=== PATIENT | male | born 1975 | race Caucasian/White ===

== ENCOUNTER 2024-10-25 19:48 | Emergency (ER) | payer OTHER ==
--- NOTE | 2024-10-25 19:53 | ED ---
General Adult HPI - General Stated complaint: Cough Time Seen by Provider: 10/25/24 19:48 Source: patient, EMS, RN notes reviewed Mode of arrival: EMS Limitations: no limitations - History of Present Illness Initial comments: 49-year-old male presents emergency department chief complaint of cough congestion. Patient states he has been sick over last couple weeks. Patient has productive cough he has rib pain from coughing. He states that he has minimal shortness of breath. Patient states he was being treated for infection prior to going [facility]. Patient states that his cough is worsening sometimes productive. Patient denies any nausea diarrhea constipation abdominal pain. Patient offers no complaints. Patient did present via EMS from [facility]. - Related Data Previous Rx's Medication Instructions Recorded Amoxic-Pot Clav 875-125Mg 1 tab PO Q12HR #20 tab 10/25/24 [Augmentin 875-125] Allergies Allergy/AdvReac Type Severity Reaction Status Date / Time ibuprofen Allergy Rash/Hives Verified 10/25/24 19:51 Review of Systems ROS Statement: Those systems with pertinent positive or pertinent negative responses have been documented in the HPI. ROS Other: All systems not noted in ROS Statement are negative. General Exam Limitations: no limitations General appearance: alert, in no apparent distress Head exam: Present: atraumatic, normocephalic, normal inspection Eye exam: Present: normal appearance, PERRL, EOMI. Absent: scleral icterus, conjunctival injection, periorbital swelling ENT exam: Present: normal exam, normal oropharynx, mucous membranes moist Neck exam: Present: normal inspection, full ROM. Absent: tenderness, meningismu s, lymphadenopathy Respiratory exam: Present: rhonchi, chest wall tenderness. Absent: normal lung sounds bilaterally, respiratory distress, wheezes, rales, stridor Cardiovascular Exam: Present: regular rate, normal rhythm, normal heart sounds. Absent: systolic murmur, diastolic murmur, rubs, gallop, clicks Course Vital Signs 10/25/24 19:52 Temperature 98.4 F Pulse Rate 79 Respiratory 18 Rate Blood Pressure 151/90 O2 Sat by Pulse 97 Oximetry Medical Decision Making - Medical Decision Making Was pt. sent in by a medical professional or institution (, PA, SUCTION OPERATOR, urgent care, hospital, or longterm...) When possible be specific @ -[facility] Did you speak to anyone other than the patient for history (EMS, parent, family, police, friend...)? What history was obtained from this source @ -No Did you review nursing and triage notes (agree or disagree)? Why? @ -I reviewed and agree with nursing and triage notes Were old charts reviewed (outside hosp., previous admission, EMS record, old EKG, old radiological studies, urgent care reports/EKG's, longterm records)? Report findings @ -No old charts were reviewed Differential Diagnosis (chest pain, altered mental status, abdominal pain women, abdominal pain men, vaginal bleeding, weakness, fever, dyspnea, syncope, headache, dizziness, GI bleed, back pain, seizure, CVA, palpatations, mental health, musculoskeletal)? @ -Intervention URI EKG interpreted by me (3pts min.). @ -None X-rays interpreted by me (1pt min.). @ -Chest x-ray shows right lobe pneumonia CT interpreted by me (1pt min.). @ -None done U/S interpreted by me (1pt. min.). @ -None done What testing was considered but not performed or refused? (CT, X-rays, U/S, labs)? Why? @ -None What meds were considered but not given or refused? Why? @ -None Did you discuss the management of the patient with other professionals (professionals i.e. , PA, SUCTION OPERATOR, lab, RT, psych nurse, manager social services, chicken boner, teacher, civilian jail officer, caseworker intake)? Give summary @ -No Was smoking cessation discussed for >3mins.? @ -No Was critical care preformed (if so, how long)? @ -No Were there social determinants of health that impacted care today? How? (Homelessness, low income, unemployed, alcoholism, drug addiction, transportation, low edu. Level, literacy, decrease access to med. care, penitentiary, rehab)? @ -No Was there de-escalation of care discussed even if they declined (Discuss DNR or withdrawal of care, Hospice)? DNR status @ -No What co-morbidities impacted this encounter? (DM, HTN, Smoking, COPD, CAD, Cancer, CVA, ARF, Chemo, Hep., AIDS, mental health diagnosis, sleep apnea, morbid obesity)? @ -Alcohol, drug abuse Was patient admitted / discharged? Hospital course, mention meds given and route, prescriptions, significant lab abnormalities, going to OR and other pertinent info. @ -Charged t patient stable, patient does have evidence of pneumonia patient received Rocephin will be discharged with Augmentin return parameters christiano. Undiagnosed new problem with uncertain prognosis? @ -No Drug Therapy requiring intensive monitoring for toxicity (Heparin, Nitro, Insulin, Cardizem)? @ -No Were any procedures done? @ -No Diagnosis/symptom? @ -[Pneumonia Acute, or Chronic, or Acute on Chronic? @ -Acute Uncomplicated (without systemic symptoms) or Complicated (systemic symptoms)? @ -Default Side effects of treatment? @ -No Exacerbation, Progression, or Severe Exacerbation? @ -No Poses a threat to life or bodily function? How? (Chest pain, [place], VT, pneumonia, PE, COPD, DKA, ARF, appy, cholecystitis, CVA, Diverticulitis, Homicidal, Suicidal, threat to staff... and all critical care pts) @ -Yes low likelihood pneumonia causing respiratory failure - Lab Data Lab Results 10/25/24 Range/Units 20:06 Influenza Type A (PCR) Not Detected (Not Detectd) Influenza Type B (PCR) Not Detected (Not Detectd) RSV (PCR) Not Detected (Not Detectd) SARS-CoV-2 (PCR) Not Detected (Not Detectd) Disposition Clinical Impression: Pneumonia Disposition: HOME SELF-CARE Condition: Stable Instructions (If sedation given, give patient instructions): Pneumonia (ED) Additional Instructions: Please return to the Emergency Department if symptoms worsen or any other concerns. Prescriptions: Amoxic-Pot Clav 875-125Mg [Augmentin 875-125] 1 tab PO Q12HR #20 tab Is patient prescribed a controlled substance at d/c from ED?: No Referrals: None,Stated [Primary Care Provider] - 1-2 days Time of Disposition: 20:56
[2024-10-25 19:56] VITALS: RESP 18
--- NOTE | 2024-10-25 20:19 | XR ---
EXAMINATION TYPE: XR chest 2V DATE OF EXAM: 10/25/2024 8:09 PM COMPARISON: None. CLINICAL INDICATION: Male, 49 years old with history of cough, TECHNIQUE: Frontal and lateral views of the chest are obtained. FINDINGS: There is patchy opacity lateral right midlung. Left lung is clear. There is no pleural ef fusion or pneumothorax seen bilaterally. The cardiac silhouette size is within normal limits. The o sseous structures are intact. IMPRESSION: Developing lateral right midlung acute infiltrate and/or atelectasis. Consider brandin carver. [facility], , 10/25/2024 8:17 PM
[2024-10-25] MEDS: cefTRIAXone 1,000 MG VIAL (IM USE) IM STA (21:08)
[2024-10-25 21:22] VITALS: BP 148/81; PULSE 71; TEMP 98.2
== END 2024-10-25 21:22 | disposition home or self-care (01) ==
LOC: EC 19:48
DX: J18.9 Pneumonia, unspecified organism (principal); F10.10 Alcohol abuse, uncomplicated; Z88.8 Allergy status to other drugs, medicaments and biological substances
CPT/HCPCS: 71046; 87636; 99283

== ENCOUNTER 2024-10-26 20:55 | Emergency (ER) | payer OTHER ==
[2024-10-26 21:01] VITALS: TEMP 98.6
[2024-10-26] MEDS: ACETAMINOPHEN TAB 500 MG TAB PO STA (21:46)
[2024-10-26] MEDS: SODIUM CHLORIDE 0.9% 1,000 ML IV STA (21:47)
[2024-10-26] MEDS: LIDOCAINE 4% PATCH TOPICAL ONE (21:49)
[2024-10-26] MEDS: methylPREDNISolone SOD SUCCI 125 MG/2 ML VIAL IV STA (21:50)
--- NOTE | 2024-10-26 21:54 | ED ---
General Adult HPI - General Chief complaint: Shortness of Breath Stated complaint: Pneumonia Time Seen by Provider: 10/26/24 21:21 Source: patient, EMS, RN notes reviewed, old records reviewed Mode of arrival: EMS Limitations: no limitations - History of Present Illness Initial comments: Patient is a 49-year-old male who presents emergency department complaining of coughing, right rib pain. Patient has been having upper respiratory symptoms for a few days. Was seen yesterday and diagnosed with pneumonia. Patient was started on Augmentin for pneumonia and discharged back to [place] where he is there for cocaine and alcohol. Patient does have a history of tobacco use and COPD. Has an albuterol inhaler as needed. Returns today as he is having worsening right sided rib pain with coughing and movement. Is still coughing as well. Denies any fevers. No hypoxia. No other acute complaints. Presents for reevaluation with a new onset right rib pain. States it is worse with movement, palpation. - Related Data Previous Rx's Medication Instructions Recorded Amoxic-Pot Clav 875-125Mg 1 tab PO Q12HR #20 tab 10/25/24 [Augmentin 875-125] Albuterol Inhaler [Ventolin Hfa 1 - 2 puff INHALATION Q6H PRN #1 10/26/24 Inhaler] each Cyclobenzaprine [Flexeril] 5 mg PO TID PRN 5 Days #15 tablet 10/26/24 Lidocaine 5% Patch [Lidoderm 5% 1 patch TOPICAL DAILY PRN 14 Days 10/26/24 Patch] #14 patch predniSONE [Deltasone] 40 mg PO DAILY 5 Days #10 tab 10/26/24 Allergies Allergy/AdvReac Type Severity Reaction Status Date / Time ibuprofen Allergy Rash/Hives Verified 10/25/24 19:51 Review of Systems ROS Statement: Those systems with pertinent positive or pertinent negative responses have been documented in the HPI. Review of Systems: CONST: Denies fever EYES: Denies blurry vision ENT: Denies nasal congestion C/V: Denies Chest pain RESP: Endorses cough, right rib pain GI: Denies abdominal pain : Denies dysuria SKIN: Denies rash. MSK: Denies joint pain. NEURO: Denies headache ROS Other: All systems not noted in ROS Statement are negative. Past Medical History Additional Past Medical History / Comment(s): closed head injury 1992 History of Any Multi-Drug Resistant Organisms: None Reported Past Surgical History: No Surgical Hx Reported Past Psychological History: Anxiety, Bipolar, Depression Smoking Status: Current every day smoker Past Alcohol Use History: Daily Past Drug Use History: Cocaine General Exam - General Exam Comments Initial Comments: General: Appears in no acute distress. HEAD: Normal with no signs of head trauma. EYES: EOMI ENT: Hearing grossly intact, normal oropharynx. RESPIRATORY: Mildly coarse breath sounds over the right lung. No hypoxia. C/V: Regular rate and rhythm. S1 and S2 auscultated, no edema, peripheral pulses 2+ and intact throughout ABD: Abd is soft, nontender, nondistended EXT: Normal range of motion, no obvious deformity. Tenderness to palpation of the right inferior lateral rib. No obvious bruising or step-offs. No evidence of flail chest. SKIN: No rashes or lesions observed on exposed skin. NEURO: Alert and x 4. Limitations: no limitations Course Vital Signs 10/26/24 10/26/24 10/26/24 20:56 21:05 21:20 Temperature 98.6 F Pulse Rate 61 64 Respiratory 18 22 Rate Blood Pressure 140/100 134/91 O2 Sat by Pulse 97 94 L 99 Oximetry 10/26/24 10/26/24 10/26/24 22:00 22:31 22:43 Temperature Pulse Rate 58 L 60 60 Respiratory 20 Rate Blood Pressure 138/101 O2 Sat by Pulse 99 Oximetry 10/26/24 23:34 Temperature Pulse Rate 61 Respiratory 18 Rate Blood Pressure 152/84 O2 Sat by Pulse 98 Oximetry Medical Decision Making - Medical Decision Making Was pt. sent in by a medical professional or institution ([facility], UTILITY SPRAY OPERATOR, urgent care, hospital, or fpc...) When possible be specific @ -No Did you speak to anyone other than the patient for history (EMS, parent, family, police, friend...)? What history was obtained from this source @ -No Did you review nursing and triage notes (agree or disagree)? Why? @ -I reviewed and agree with nursing and triage notes Were old charts reviewed (outside hosp., previous admission, EMS record, old EKG, old radiological studies, urgent care reports/EKG's, fpc records)? Report findings @ -Reviewed visit from yesterday when patient was diagnosed with right-sided pneumonia and started on Augmentin. Differential Diagnosis (chest pain, altered mental status, abdominal pain women, abdominal pain men, vaginal bleeding, weakness, fever, dyspnea, syncope, headache, dizziness, GI bleed, back pain, seizure, CVA, palpatations, mental health, musculoskeletal)? @ -Pneumonia, rib fracture, musculoskeletal pain, this list is not all inclusive. EKG interpreted by me (3pts min.). @ -As above X-rays interpreted by me (1pt min.). @ -Chest x-ray reveals no evidence of rib fracture. The diagnosed pneumonia from yesterday seems to be improving. CT interpreted by me (1pt min.). @ -None done U/S interpreted by me (1pt. min.). @ -None done What testing was considered but not performed or refused? (CT, X-rays, U/S, la bs)? Why? @ -None What meds were considered but not given or refused? Why? @ -None Did you discuss the management of the patient with other professionals (professionals i.e. , PA, UTILITY SPRAY OPERATOR, lab, RT, psych nurse, nursing home social worker, through freight engineer, teacher, financial aids officer, insurance case manager)? Give summary @ -No Was smoking cessation discussed for >3mins.? @ -No Was critical care preformed (if so, how long)? @ -No Were there social determinants of health that impacted care today? How? (Homelessness, low income, unemployed, alcoholism, drug addiction, transportation, low edu. Level, literacy, decrease access to med. care, retirement, rehab)? @ -No Was there de-escalation of care discussed even if they declined (Discuss DNR or withdrawal of care, Hospice)? DNR status @ -No What co-morbidities impacted this encounter? (DM, HTN, Smoking, COPD, CAD, Cancer, CVA, ARF, Chemo, Hep., AIDS, mental health diagnosis, sleep apnea, morbid obesity)? @ -Polysubstance abuse Was patient admitted / discharged? Hospital course, mention meds given and route, prescriptions, significant lab abnormalities, going to OR and other pertinent info. @ -Patient presents emergency department complaining of right-sided rib pain. Diagnosed with pneumonia yesterday. Has received 1 days worth of Augmentin. Right-sided rib pain has seemed to worsen with the coughing. Seems to be musculoskeletal in nature. We will obtain right-sided rib x-ray, screening EKG, basic labs. Patient will be symptomatically treated with analgesia me dications, IV fluids, DuoNeb, Solu-Medrol. He was in agreement this plan. Vital signs are within acceptable limits. EKG shows no signs of acute ischemia.Chest x-ray unremarkable. No evidence of rib fracture or worsening pneumonia. Labs remarkable for mild leukocytosis of 10.9. After the patient. Vital signs remained within acceptable limits. No hypoxia. He is feeling improved following treatment. We discussed his workup. He likely has rib contusions and I recommended he continue treatment of his pneumonia with the Augmentin that was sent yesterday. I will start him on prednisone as well as an albuterol inhaler. Patient will also be given a prescription for lidocaine patches as well as Flexeril for his rib contusions and bruising. He was in agreement this plan. Strict return precautions discussed. Patient given incentive spirometer. I will provide the patient with a prescription for prednisone, Flexeril, albuterol inhaler, lidocaine patch. I instructed the patient to follow up with their PCP in the next 1-3 days.. I explained that the patient should return to the emergency department if they experience any worsening symptoms. Strict return precautions were discussed with the patient. The patient expressed understanding of these instructions. I answered all questions that the patient had. The patient was discharged home in good condition with their prescriptions and follow up information. Undiagnosed new problem with uncertain prognosis? @ -No Drug Therapy requiring intensive monitoring for toxicity (Heparin, Nitro, Insulin, Cardizem)? @ -No Were any procedures done? @ -No Diagnosis/symptom? @ -Rib contusion, current treatment for pneumonia, COPD Acute, or Chronic, or Acute on Chronic? @ -Acute Uncomplicated (without systemic symptoms) or Complicated (systemic symptoms)? @ -Uncomplicated Side effects of treatment? @ -None Exacerbation, Progression, or Severe Exacerbation] @ -No Poses a threat to life or bodily function? @ -Unlikely at this time - Lab Data Result diagrams: 10/26/24 21:41 10/26/24 21:41 Lab Results 10/26/24 10/26/24 Range/Units 21:41 21:41 WBC 10.9 H (3.8-10.6) k/uL RBC 4.48 (4.30-5.90) m/uL Hgb 14.4 (13.0-17.5) gm/dL Hct 41.7 (39.0-53.0) % MCV 93.0 (80.0-100.0) fL MCH 32.2 (25.0-35.0) pg MCHC 34.6 (31.0-37.0) g/dL RDW 12.2 (11.5-15.5) % Plt Count 276 (150-450) k/uL MPV 8.6 Neutrophils % 61 % Lymphocytes % 26 % Monocytes % 6 % Eosinophils % 4 % Basophils % 1 % Neutrophils # 6.7 (1.3-7.7) k/uL Lymphocytes # 2.9 (1.0-4.8) k/uL Monocytes # 0.6 (0-1.0) k/uL Eosinophils # 0.5 (0-0.7) k/uL Basophils # 0.1 (0-0.2) k/uL Sodium 137 (137-145) mmol/L Potassium 4.2 (3.5-5.1) mmol/L Chloride 103 (98-107) mmol/L Carbon Dioxide 21 L (22-30) mmol/L Anion Gap 13 mmol/L BUN 18 (9-20) mg/dL Creatinine 0.83 (0.66-1.25) mg/dL Est GFR (CKD-EPI)AfAm >90 (>60 ml/min/1.73 sqM) Est GFR (CKD-EPI)NonAf >90 (>60 ml/min/1.73 sqM) Glucose 106 H (74-99) mg/dL Calcium 10.2 (8.4-10.2) mg/dL - EKG Data -: EKG Interpreted by Me EKG Comments: 12-lead Electrocardiogram Interpretation Note EKG was reviewed and interpreted by myself. 12-lead ECG performed at 2058 is interpreted by me as revealing normal sinus rhythm at a rate of 62 beats per minute. [place] is normal. DC interval is 147 ms, QRS duration is 86 ms, QTc is 409 ms.. There were no ST or T wave abnormalities to suggest myocardial ischemia or injury. R wave progression across the precordium was satisfactory. By my interpretation this EKG is non-diagnostic for acute ischemia. Disposition Clinical Impression: Pneumonia, Rib contusion, COPD (chronic obstructive pulmonary disease) Disposition: HOME SELF-CARE Condition: Good Instructions (If sedation given, give patient instructions): How to Use an Incentive Spirometer (ED), Community Acquired Pneumonia (ED), Rib Contusion (ED) Prescriptions: predniSONE [Deltasone] 40 mg PO DAILY 5 Days #10 tab Cyclobenzaprine [Flexeril] 5 mg PO TID PRN 5 Days #15 tablet PRN Reason: Pain Lidocaine 5% Patch [Lidoderm 5% Patch] 1 patch TOPICAL DAILY PRN 14 Days #14 patch PRN Reason: Pain Albuterol Inhaler [Ventolin Hfa Inhaler] 1 - 2 puff INHALATION Q6H PRN #1 each PRN Reason: Dyspnea Is patient prescribed a controlled substance at d/c from ED?: No Referrals: None,Stated [Primary Care Provider] - 1-2 days Forms: Area PCPs Time of Disposition: 23:11
[2024-10-26 22:06] LABS: Basophils # (A) 0.1 k/uL (0-0.2); Basophils % (A) 1 %; Eosinophils # (A) 0.5 k/uL (0-0.7); Eosinophils % (A) 4 %; HCT 41.7 % (39.0-53.0); HGB 14.4 gm/dL (13.0-17.5); Lymphocytes # (A) 2.9 k/uL (1.0-4.8); Lymphocytes % (A) 26 %; MCH 32.2 pg (25.0-35.0); MCHC 34.6 g/dL (31.0-37.0); Mean Platelet Volume 8.6; Monocytes # (A) 0.6 k/uL (0-1.0); Monocytes % (A) 6 %; Neutrophils # (A) 6.7 k/uL (1.3-7.7); Neutrophils % (A) 61 %; Platelet Count 276 k/uL (150-450); RBC 4.48 m/uL (4.30-5.90); RDW 12.2 % (11.5-15.5); WBC 10.9 k/uL (3.8-10.6)
[2024-10-26 22:10] LABS: African American GFR (CKD) >90 (>60 ml/min/1.73 sqM); Anion Gap 13 mmol/L; Blood Urea Nitrogen 18 mg/dL (9-20); Calcium 10.2 mg/dL (8.4-10.2); Carbon Dioxide 21 mmol/L (22-30); Chloride 103 mmol/L (98-107); Glucose 106 mg/dL (74-99); Non-African American GFR(CKD) >90 (>60 ml/min/1.73 sqM); Potassium 4.2 mmol/L (3.5-5.1); Sodium 137 mmol/L (137-145)
--- NOTE | 2024-10-26 22:23 | XR ---
EXAMINATION TYPE: XR ribs RT w pa chest xray DATE OF EXAM: 10/26/2024 10:03 PM COMPARISON: Prior chest x-ray October 2024. CLINICAL INDICATION: Male, 49 years old with history of coughing, right rib pain, TECHNIQUE: Single frontal view of the chest is obtained. A frontal and oblique images of the right-si ded ribs. FINDINGS: There is no focal air space opacity, pleural effusion, or pneumothorax seen. The cardiac silhouette size remains within normal limits. The osseous structures are intact. No acute displaced right-sided rib fractures. No suspicious focal destructive or expansile right rib lesion. Overlying soft tissue is unremarkable. IMPRESSION: 1. No acute cardiopulmonary process. 2. No acute displaced right-sided rib fractures. [facility], , 10/26/2024 10:21 PM
[2024-10-26] MEDS: IPRATROPIUM-ALBUTEROL 3 ML NEB INHALATION STA (22:31)
[2024-10-26] MEDS: CYCLOBENZAPRINE 5 MG TAB PO STA (23:33)
[2024-10-26 23:37] VITALS: BP 152/84; PULSE 61; RESP 18
== END 2024-10-26 23:36 | disposition home or self-care (01) ==
LOC: EC 20:55
DX: S20.219A Contusion of unspecified front wall of thorax, initial encounter (principal); J18.9 Pneumonia, unspecified organism; J44.9 Chronic obstructive pulmonary disease, unspecified; F19.10 Other psychoactive substance abuse, uncomplicated; F17.200 Nicotine dependence, unspecified, uncomplicated; Z88.8 Allergy status to other drugs, medicaments and biological substances; X58.XXXA Exposure to other specified factors, initial encounter
CPT/HCPCS: 36415; 94640; 93005; 80048; 85025; 71101; 99285; 96374; 96361; J2919